=== PATIENT | male | born 1995 | race Caucasian/White ===

== ENCOUNTER 2018-09-11 19:28 | Emergency (ER) | payer SELFPAY ==
[~2018-09-11] VITALS: Ht 167.6 cm; Wt 59.1 kg
[2018-09-11] MEDS ORDERED: ARIP10TA8 PO (19:40)
[2018-09-11] MEDS ORDERED: IBUPROFEN 800 MG TABLET PO ONE (20:45)
[2018-09-11 23:37] VITALS: BP 128/78
== END 2018-09-11 23:40 | disposition home or self-care (01) ==
LOC: EMS 19:30
DX: S60.221A Contusion of right hand, initial encounter (principal); F32.9 Major depressive disorder, single episode, unspecified; Y04.0XXA Assault by unarmed brawl or fight, initial encounter; Y93.89 Activity, other specified; Y92.89 Other specified places as the place of occurrence of the external cause; Y99.8 Other external cause status

== ENCOUNTER 2019-03-01 21:13 | Emergency (ER) | payer SELFPAY ==
[~2019-03-01] VITALS: Ht 167.6 cm; Wt 59.1 kg
[~2019-03-01 21:13] MED LIST: ARIP10TA8 PO
[2019-03-01 21:46] VITALS: BP 113/76
== END 2019-03-02 00:45 | disposition left against medical advice (07) ==
LOC: EMS 21:13
DX: R51 Headache (principal); Y04.0XXA Assault by unarmed brawl or fight, initial encounter; Y93.89 Activity, other specified; Y92.89 Other specified places as the place of occurrence of the external cause; Y99.8 Other external cause status; Z53.21 Procedure and treatment not carried out due to patient leaving prior to being seen by health care provider